=== PATIENT | female | born 1980 | race Caucasian/White ===

== ENCOUNTER 2017-10-19 14:13 | Emergency (ER) | payer BC ==
[~2017-10-19] VITALS: Ht 167.6 cm; Wt 71.8 kg
[2017-10-19 14:48] LABS: HEMATOCRIT 40.1 % (36.0-46.0); MCH 29.9 PG (29.0-34.0); MCHC 33.9 G/DL (30.0-36.0); MCV 88.1 FL (83-99); MEAN PLAT.VOLUME 12.1 uM^3 (9.5-12.4); PLATELET COUNT 220 K/uL (156-360); RBC DIS.WIDTH-CV 11.9 % (11.8-14.6); RBC DIS.WIDTH-SD 38.3 % (39-53); RED BLOOD COUNT 4.55 M/uL (3.80-5.20); WHITE BLOOD COUNT 8.1 K/uL (4.1-10.2)
[2017-10-19 16:14] VITALS: BP 135/78
== END 2017-10-19 16:17 | disposition home or self-care (01) ==
LOC: EME 14:13
DX: O20.0 Threatened abortion (principal)
CPT/HCPCS: 81003; 84702; 85027; 99281; 99283